=== PATIENT | female | born 1980 | race Caucasian/White ===

== ENCOUNTER → 2019-10-28 08:41 | Outpatient (CLI) | payer BC, SELFPAY ==
--- NOTE | ~2019-10-28 | US_ITS ---
EXAMINATION: US breast RT limited HISTORY: Palpable lump at the 12:00 location of the right breast TECHNIQUE: Targeted right breast ultrasound is performed. FINDINGS: There is a 1.5 x 0.7 cm cyst at the 12:00 location 4 cm from the nipple in the right breast corresponding to the palpable abnormality of concern. No suspicious cystic or solid mass is identifi ed. IMPRESSION: Right breast cyst corresponding to the palpable abnormality of concern. Clinical follow-up is recomme nded. BI-RADS Category 2: Benign finding(s). Reviewed, dictated and finalized at location A. IMPRESSION: Right breast cyst corresponding to the palpable abnormality of concern. Clinica l follow-up is recommended. BI-RADS Category 2: Benign finding(s).
== END ==
PROVIDERS: Visit Provider Nurse Practitioner Obstetrics & Gynecology
DX: N63.10 Unspecified lump in the right breast, unspecified quadrant (principal)
CPT/HCPCS: 76642